=== PATIENT | female | born 1995 | race Caucasian/White ===

== ENCOUNTER 2018-03-22 16:40 | Emergency (ER) | payer OTHER ==
[2018-03-22] MEDS ORDERED: Lidocaine 1% w/Epinephrine 1:100K 20 ML VIAL ONE (17:08)
== END 2018-03-22 18:07 | disposition home or self-care (01) ==
LOC: SCSER 16:40
DX: L05.01 Pilonidal cyst with abscess (principal)
CPT/HCPCS: 10080; 87070; 87205; J2001